=== PATIENT | male | born 1950 ===

== ENCOUNTER 2025-03-29 13:38 | Outpatient (NON) | payer MEDICARE, SELFPAY ==
--- OUTSIDE RECORDS SUMMARY | 2025-03-29 13:57 | XMS_ITS | Clinical Summary ---
Author Organization [facility] Address [address] [facility] [place] [address] Care Team Providers Care Online Editor Name Role Phone Marianne Forbes APRN-PASTRY COOK HELPER Primary Care Provider [phone] Source Comments [facility],non-owned Affiliates and Associated Physician Practices is amultiple site organization consisting of ambulatory clinics and hospital sitesin [place], [place], [place] and [place]. This disclosure is being madepursuant to the Care Everywhere program and may not contain all information available regarding this patient. Last updated 18.[facility] Allergies No known active allergies Medications * Be aware that medications may not be up to date on this document. Alwaysverify current medications with the patient. albuterol (PROVENTIL;TACHO KIMBERLY) (2.5 MG/3ML) 0.083% nebulizer solution Inhale 2.5 mg by mouth every 4 hours as needed Active albuterol HFA (VENTOLIN HFA) 108 (90 Base) MCG/ACT inhaler Inhale 2 puffs by mouth 4 times daily 9 Active aspirin (ASPIRIN) 81 MG tablet Take 81 mg by mouth once daily 9 Active budesonide-formo terol (SYMBICORT) 160-4.5 MCG/ACT inhaler Inhale 2 puffs by mouth 2 times daily 9 Active buPROPion SR 12hr (WELLBUTRIN-SR) 150 MG tablet TAKE 1 TABLET BY MOUTH TWICE DAILY FOR MOOD 9 Active diazePAM (VALIUM) 2 MG tablet Take 2 mg by mouth once daily as needed 9 Active vitamin D, ergocalciferol, (DRISDOL) 1.25 MG (30327 UT) capsule Take 50,000 Units by mouth every 7 days 9 Active FLUoxetine (PROZAC) 40 MG capsule TAKE 2 CAPSULES BY MOUTH DAILY...FOR MOOD 9 Active gabapentin (NEURONTIN) 600 MG tablet TAKE 1 TABLET BY MOUTH THREE TIMES DAILY FOR NEUROPATHY/NE RVE PAIN. 9 Active HYDROcodone-acet aminophen (NORCO) 7.5-325 MG tablet Take 1 tablet by mouth every 6 hours as needed 9 Active meloxicam (MOBIC) 15 MG tablet Take 15 mg by mouth once daily after lunch 9 Active nitroGLYCERIN (NITROSTAT) 0.4 MG tablet Dissolve 0.4 mg under the tongue every 24 hours as needed 9 Active tamsulosin (FLOMAX) 0.4 MG capsule Take 0.4 mg by mouth at bedtime 9 Active omeprazole (PRILOSEC) 40 MG capsule Take 40 mg by mouth at bedtime 0 Active isosorbide mononitrate CR 24hr (IMDUR) 30 MG tablet Take 30 mg by mouth once daily after lunch 0 Active INCRUSE ELLIPTA 62.5 MCG/INH inhaler Inhale 1 puff by mouth once daily 0 Active topiramate (TOPAMAX) 100 MG tablet Take 100 mg by mouth at bedtime 0 Active DULoxetine (CYMBALTA) 20 MG capsule Take 40 mg by mouth once daily 0 Active atorvastatin (LIPITOR) 40 MG tablet Take 40 mg by mouth at bedtime 0 Active furosemide (LASIX) 40 MG tablet Take 40 mg by mouth once daily 0 Active SLOW RELEASE IRON 45 MG TBCR Take 45 mg by mouth once daily 0 Active OXYGEN Use 4 L/min as directed Active CPAP Use as directed Active sulfamethoxazole -trimethoprim (Bactrim DS) 800-160 MG tablet Take 1 (one) tablet by mouth 2 times daily 14 tablet 4 Active Active Problems Problem Noted Date Diagnosed Date Abdominal pain, left lower quadrant 11/19/2020 Hypoxia 11/19/2020 Acute respiratory failure with hypoxia and hyper capnia 11/19/2020 Person under investigation for COVID-19 11/19/19 21 Acute respiratory failure due to COVID-19 2020 Chest pain 11/09/2019 Immunizations Immunization Administration Dates Next Due INFLUENZA VACCINE 07/13/2020, 9,08/25/2018,10/13/2017,12/27/19 17,12/25/2015,10/04/2014,09/01/2012 PNEUMOCOCCAL PPSV23 09/01/2012 Pneumococcal Pcv13 Conj 10/04/2014 TDAP (7yrs+) 04/01/2019 Social History Tobacco Use Types Packs/Day Years Used Date Smoking Tobacco: Every Day Cigarettes Smokeless Tobacco: Never Alcohol Use Standard Drinks/Week Comments No 0 (1 standard drink = 0.6 oz pur e alcohol) AUDIT-C Answer Date Recorded Q1: How often do you have a drink containing alcohol? Never 08/17/2024 Q2: How many drinks containi ng alcohol do you have on a typical day when you are drinking? Patient does not drink Q3: How often do you have si x or more drinks on one occasion? Never 08/17/2024 Sex and Gender Information Value Date Recorded Sex Assigned at Not on file Legal Sex Male 2:22 AM SENIOR RESEARCH EXECUTIVE Gender Identity Not on file Sexual Orientation Not on file Last Filed Vital Signs Vital Sign Reading Time Taken Comments Blood Pressure 177/92 08/17/2024 4:43 PM CDT Pulse 67 08/17/2024 4:41 PM CDT Temperature 36.2 C (97.2 F) 08/17/2024 1:44 PM CDT Respiratory Rate 23 08/17/2024 4:41 PM CDT Oxygen Saturation 92% 08/17/2024 4:41 PM CDT Inhaled Oxygen Concentration 45% 12/01/2020 3 :35 AM SENIOR RESEARCH EXECUTIVE Weight 106.6 kg (235 lb) 08/17/2024 1:44 PM CDT Height 167.6 cm (5' 6 ) 08/17/2024 1:44 PM CDT Body Mass Index 37.93 08/17/2024 1:44 PM CDT Plan of Treatment Health Maintenance Due Date Last Done Comments COLOGUARD (AGES 45-75) - COLON CA SCREENING 1952 COLON MONITORING 1952 COLONOSCOPY - COLON CA SCREENING 1952 CT COLONOGRAPHY - COLON CA SCREENING 1950 Colorectal Cancer Screening 1952 FIT - COLON CA SCREENING 1952 FLEX SIG - COLON CA SCREENING 1952 ZOSTER VACCINE (1 of 2) 2002 AAA SCREENING 2017 PNEUMOCOCCAL VACCINE 50+ (3 of 3 - PCV20 or PCV21) 10/04/2019 10/04/2014, 09/01/2012 COVID-19 VACCINE (4 - season) 2024 07/24/2021, 03/11/2021, 02/18/2021 DEPRESSION SCREENING 11/09/2024 MEDICARE AWV CALENDAR YEAR 2024 INFLUENZA VACCINE (Season Ended) 2025 10/09/2023, 08/08/2022, 07/24/2021, Additional history exists SCREENING FOR DIABETES 08/17/2027 , 12/29/2023, 05/14/2021, Additional history exists Respiratory Syncytial Virus (RSV) Vaccine Pt: or over 60 yrs (1 - 1-dose 75+ series) 2027 DTAP/TDAP/TD VACCINES (2 - Td or Tdap) 04/01/2029 04/01/2019 HEPATITIS C SCREENING Completed 11/21/2020, 020 HEPATITIS B VACCINE Aged Out No longe r eligible based on patient's age to complete this topic HIB VACCINE Aged Out No longer eligi ble based on patient's age to complete this topic HPV VACCINE Aged Out No longer eligi ble based on patient's age to complete this topic MENINGOCOCCAL (Group B) VACCINE SHARED DECISION-MAKING Aged Out No longer eligible based on patient's age to complete this topic MENINGOCOCCAL GROUPS A/C/Y/W VACCINE Aged Out No longer eligible based on patient's age to complete this topic Procedures Procedure Name Priority Date/Time Associated Diagnosis Comments COMPREHENSIVE METABOLIC PANEL STAT 08/17/2024 3:14 PM CDT HEPATITIS C AB SCREEN RFLX NAAT QUANT AM Draw 11/21/2020 3:51 AM SENIOR RESEARCH EXECUTIVE from Last 3 Months or Most Recently Relevant to Health Maintenance Results * (ABNORMAL) COMPREHENSIVE METABOLIC PANEL (08/17/2024 3:14 PM CDT) Glucose 206(H) 70 - 125 mg/dL 08/17/2024 3:39 PM CDT [facility] Sodium 143 136 - 145 mmol/L 08/17/2024 3:39 PM CDT [facility] Potassium 4.4 3.4 - 5.1 mmol/L 08/17/2024 3:39 PM CDT [facility] Chloride 110(H) 98 - 107 mmol/L 08/17/2024 3:39 PM CDT [facility] CO2 28 22 - 29 mmol/L 08/17/2024 3:39 PM CDT [facility] Calcium 9.02 8.4 - 10.2 mg/dL 08/17/2024 3:39 PM CDT [facility] Anion Gap 5(L) 6 - 16 mmol/L 08/17/2024 3:39 PM CDT [facility] BUN 20.5 8.4 - 25.7 mg/dL 08/17/2024 3:39 PM CDT [facility] Creatinine 0.83 0.72 - 1.25 mg/dL 08/17/2024 3:39 PM CDT [facility] Alkaline Phosphatase 145 40 - 150 U/L 08/17/2024 3:39 PM CDT [facility] ALT 22 <=55 U/L 08/17/2024 3:39 PM CDT [facility] AST 18 5 - 34 U/L 08/17/2024 3:39 PM CDT [facility] Protein Total 6.9 6.4 - 8.3 gm/dL 08/17/2024 3:39 PM CDT [facility] Albumin 3.4 3.4 - 4.8 gm/dL 08/17/2024 3:39 PM CDT [facility] Globulin Total 3.5 2.6 - 4.0 gm/dL 08/17/2024 3:39 PM CDT [facility] Albumin/Globulin Ratio 1.0 0.9 - 1.6 08/17/2024 3:39 PM CDT [facility] Bilirubin Total 0.3 0.2 - 1.2 mg/dL 08/17/2024 3:39 PM CDT [facility] eGFR >90 >90 mL/min/1.7 3m2 08/17/2024 3:39 PM CDT [facility] Comment:The GFR result was c alculated using the updated CKD-EPI Creatinine Equation (2020). Blood BLOOD SPECIMEN / Unknown Venipuncture / Unknown 08/17/2024 3:14 PM CDT 08/17/2024 3:19 PM CDT Xenia Bird BUMPER MACHINE OPERATOR-PASTRY COOK HELPER LAB - CHEMISTRY ORDER PIOTR Final Result [facility] [address] * HEPATITIS C AB SCREEN RFLX NAAT QUANT (11/21/2020 3:51 AM SENIOR RESEARCH EXECUTIVE) Interpretation Hepatitis C Antibody DIANE Negative Negative 11/22/2020 9:21 PM SENIOR RESEARCH EXECUTIVE [employer] ([facility]) Comment: Based on the anti-HCV (DIANE) screen, the HCV RNA by Quantitative NAAT test is not indicated and therefore not performed. INTERPRETIVE INFORMATION: Hepatitis C Virus Antibody by DIANE Index: 0.79 IV or less .................. Negative 0.80 to 0.99 IV .................. Equivocal 1.00 to 10.99 IV ................. Low Positive 11.00 IV or greater .............. High Positive Index Value (IV) = Anti-HCV signal to cutoff (S/C)ratio This assay should not be used for blood donor screening, associated re-entry protocols, or for screening Human Cells, Tissues and Cellular and Tissue-Based Products (HCT/P). Interpretation Hepatitis C Antibody Index 0.03 IV 11/22/2020 9:21 PM SENIOR RESEARCH EXECUTIVE [employer] ([facility]) Comment: Performed by [employer], [address] [place] [id number] [email or web address], Pilar Chambers MD, Lab. Director Blood BLOOD SPECIMEN / Unknown Lab Venipuncture / Unknown 11/21/2020 3:51 AM SENIOR RESEARCH EXECUTIVE 11/21/2020 4:00 AM SENIOR RESEARCH EXECUTIVE Deon Plata MD LAB - CHEMISTRY ORDERABLES Final Result [facility] ([facility]) [address] from Last 3 Months or Most Recently Relevant to Health Maintenance Insurance AET AETNA MEDICARE ADV AETNA AETNA MEDICARE ADV Advance Directives Documents on File Type Date Recorded Patient Roll On Worker Expl anation Code Status/Resuscitation 12/04/2020 9:55 AM * LIMITED RESUSCITATION-PRIOR AND AFTER ARREST (Latest Code Status on File) Date Activated Date Inactivated Comments 11/20/2020 3:58 PM 12/03/2020 3:58 PM Question Answer Comments If patient has no pulse and is not breathing: Do Not Attempt Resuscitation/DNR If patient is found with a p ulse and/or is breathing: Selective Treatment: Use medical treatment, IV fluids and IV medications, including antibiotics and vasopressors, as medically appropriate and consistent with patient preference. Do Not Intubate. May consider CPAP or BiPAP. * Full Code Date Activated Date Inactivated Comments 11/19/2020 7:24 PM 11/20/2020 3:58 PM * Full Code Date Activated Date Inactivated Comments 11/11/2019 2:02 PM 11/12/2019 8:11 AM * Full Code Date Activated Date Inactivated Comments 11/10/2019 2:16 AM 11/11/2019 2:02 PM Care Teams Online Editor Relationship Specialty Start Date End Date Marianne Forbes, BUMPER MACHINE OPERATOR-PASTRY COOK HELPER [address] [place] [address] PCP - General Nurse Practitioner Family 11/09/19
--- OUTSIDE RECORDS SUMMARY | 2025-03-29 13:57 | XMS_ITS | Referral Summary ---
Author Organization [facility] Address [address] [place] [address] Care Team Providers Care Sow Manager Name Role Phone Marianne Forbes NP Primary Care Provider [phone] Allergies No known active allergies Medications aspirin (Aspirin Childrens) 81 mg chewable tablet Take 1 tablet (81 mg total) by mouth daily 9 Active atorvastatin (LIPITOR) 80 mg tablet Take 1 tablet (80 mg total) by mouth nightly 4 Active OneTouch Ultra Test strip 4 Active budesonide-formo teroL (SYMBICORT) 160-4.5 mcg/actuation inhaler Inhale 2 puffs 2 (two) times a day 9 Active buPROPion SR (WELLBUTRIN SR) 150 mg 12 hr tablet TAKE 1 TABLET BY MOUTH TWICE DAILY FOR MOOD 9 Active celecoxib (CeleBREX) 200 mg capsule Take 1 capsule (200 mg total) by mouth daily 4 Active meloxicam (MOBIC) 15 mg tablet Take 1 tablet (15 mg total) by mouth 9 Active metFORMIN (GLUCOPHAGE) 500 mg tablet Take 1 tablet (500 mg total) by mouth daily 4 Active cloNIDine (CATAPRES) 0.1 mg tablet Take 1 tablet (0.1 mg total) by mouth 2 (two) times a day 4 Active dapagliflozin propanediol (FARXIGA) 5 mg tablet 4 Active furosemide (LASIX) 40 mg tablet Take 1 tablet (40 mg total) by mouth daily 0 Active gabapentin (NEURONTIN) 600 mg tablet TAKE 1 TABLET BY MOUTH THREE TIMES DAILY FOR NEUROPATHY/NERV E PAIN 9 Active HYDROcodone-acet aminophen (NORCO) 7.5-325 mg per tablet Take 1 tablet by mouth every 6 (six) hours as needed 9 Active isosorbide mononitrate ER (IMDUR) 30 mg 24 hr tablet Take 1 tablet (30 mg total) by mouth 0 Active isosorbide mononitrate ER (IMDUR) 120 mg 24 hr tablet TAKE 1 TABLET BY MOUTH ONCE DAILY. *THISIS A DOSE INCREASE ON 04/10/23 4 Active metoprolol XL (TOPROL-XL) 25 mg extended release tablet Take 1 tablet (25 mg total) by mouth daily 4 Active nitroglycerin (NITROSTAT) 0.[address] 1 tablet (0.4 mg total) under the tongue every 5 (five) minutes as needed 9 Active omeprazole (PriLOSEC) 40 mg capsule Take 1 capsule (40 mg total) by mouth daily 0 Active tamsulosin (FLOMAX) 0.4 mg extended release capsule Take 1 capsule (0.4 mg total) by mouth nightly 9 Active tiZANidine (ZANAFLEX) 4 mg tablet Take 1 tablet (4 mg total) by mouth 3 (three) times a day as needed 4 Active topiramate (TOPAMAX) 100 mg tablet Take 1 tablet (100 mg total) by mouth nightly 0 Active torsemide (DEMADEX) 20 mg tablet TAKE 2 TABLETS BY MOUTH DAILY ALTERNATING WITH 1 TABLET DAILY. 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 Social History Tobacco Use Types Packs/Day Years Used Date Smoking Tobacco: Never Assessed Sex and Gender Information Value Date Recorded Sex Assigned at Not on file Legal Sex Male 6:46 PM GIS TECHNICIAN Gender Identity Not on file Sexual Orientation Not on file Last Filed Vital Signs Vital Sign Reading Time Taken Comments Blood Pressure - - Pulse - - Temperature - - Respiratory Rate - - Oxygen Saturation - - Inhaled Oxygen Concentration - - Weight 106.6 kg (235 lb) 10/03/2024 10:05 AM GIS TECHNICIAN Height 167.6 cm (5' 6 ) 10/03/2024 10:05 AM GIS TECHNICIAN Body Mass Index 37.93 10/03/2024 10:05 AM GIS TECHNICIAN Plan of Treatment Not on file Insurance [employer] [facility] [employer] Care Teams Sow Manager Relationship Specialty Start Date End Date Marianne Forbes NP [address], [place] [phone] PCP - General Lithographic Retoucher Apprentice 09/02/24
--- OUTSIDE RECORDS SUMMARY | 2025-03-29 13:57 | XMS_ITS | Clinical Summary ---
Author Organization [facility] Address [address] [place] [address] Care Team Providers Care Pilot Plant Research Technician Name Role Phone Marianne Forbes NP Primary Care Provider [phone] Allergies No known active allergies Medications aspirin [...] on file Legal Sex Male 6:46 PM RESPIRATORY CARE FACULTY Gender Identity Not on file Sexual Orientation Not on file Last Filed Vital Signs Vital Sign Reading Time Taken Comments Blood Pressure - - Pulse - - Temperature - - Respiratory Rate - - Oxygen Saturation - - Inhaled Oxygen Concentration - - Weight 106.6 kg (235 lb) 10/03/2024 10:05 AM RESPIRATORY CARE FACULTY Height 167.6 cm (5' 6 ) 10/03/2024 10:05 AM RESPIRATORY CARE FACULTY Body Mass Index 37.93 10/03/2024 10:05 AM RESPIRATORY CARE FACULTY Plan of Treatment Health Maintenance Due Date Last Done Comments Colon Cancer Screening-Colonoscopy 1952 Depression Screening 1952 Fall Risk Assessment 1950 Hepatitis C Screening 1952 Hepatitis B Screening 1970 Zoster Vaccine (1 of 2) 2002 Well Visit 65+ 2017 Covid-19 Vaccine (4 - 2023-2 5 season) 2024 07/24/2021, 03/11/2021, 02/18/2021 Pneumococcal vaccine 65+ (3 of 3 - PCV20 or PCV21) 01/01/2026 01/01/2021, 10/04/2014, 09/01/2012 DTaP/Tdap/Td Vaccine (2 - Td or Tdap) 04/01/2029 04/01/2019 Abdominal Aortic Aneurysm (A AA) Screen Completed 12/29/2023, 05/14/2021, 11/19/2020, Additional history exists Influenza Vaccine Completed 08/29/2024, , 08/08/2019, Additional history exists [place] [address] [address] [facility] Care Teams Pilot Plant Research Technician Relationship Specialty Start Date End Date Marianne Forbes NP [address] [place] [address] PCP - General Government Teacher 09/02/24
[2025-03-29 15:36] LABS: Alanine Aminotransferase 21 U/L (6-50); Albumin Level 4.7 g/dL (3.5-5.1); Alkaline Phosphatase 155 U/L (38-126); Anion Gap 10 mmol/L (4-12); Aspartate Amino Transferase 28 U/L (17-59); Bilirubin,Total 0.5 mg/dL (0.2-1.3); Blood Urea Nitrogen 27 mg/dL (9-20); Carbon Dioxide 32 mmol/L (22-30); Chloride 101 mmol/L (98-107); Estimated Glomerular Filt Rate > 60; Glucose 141 mg/dL (65-110); Potassium 4.9 mmol/L (3.4-5.0); Sodium 143 mmol/L (137-145)
== END 2025-03-29 13:39 | disposition home or self-care (01) ==
PROVIDERS: PCP Internal Medicine; Visit Provider Nurse Practitioner Family
DX: M62.838 Other muscle spasm (principal)
CPT/HCPCS: 80053

== ENCOUNTER 2025-04-06 12:03 | Outpatient (NON) | payer MEDICARE, SELFPAY ==
--- OUTSIDE RECORDS SUMMARY | 2025-04-06 12:12 | XMS_ITS | Clinical Summary ---
Author Organization [facility] Address [address] [place] [address] Care Team Providers Care Whip Sawyer Name Role Phone Marianne Forbes NP Primary Care Provider [phone] Allergies No known active allergies Medications aspirin [...] on file Legal Sex Male 6:46 PM GROUND HAND Gender Identity Not on file Sexual Orientation Not on file Last Filed Vital Signs Vital Sign Reading Time Taken Comments Blood Pressure - - Pulse - - Temperature - - Respiratory Rate - - Oxygen Saturation - - Inhaled Oxygen Concentration - - Weight 106.6 kg (235 lb) 10/03/2024 10:05 AM GROUND HAND Height 167.6 cm (5' 6) 10/03/2024 10:05 AM GROUND HAND Body Mass Index 37.93 10/03/2024 10:05 AM GROUND HAND Plan of Treatment Health Maintenance Due Date [...] 08/29/2024, , 08/08/2019, Additional history exists [place] [address] [place] [address] [facility] Address: [facility] [id number] [place] [phone] [facility] Care Teams Whip Sawyer Relationship Specialty Start Date End Date Marianne Forbes NP [address] [place] [address] PCP - General Linen Room Worker 09/02/24
--- OUTSIDE RECORDS SUMMARY | 2025-04-06 12:12 | XMS_ITS | Referral Summary ---
Author Organization [facility] Address [address] [place] [address] Care Team Providers Care Painter Spray Name Role Phone Marianne Forbes NP Primary Care Provider [phone] Allergies No known active allergies Medications aspirin [...] on file Legal Sex Male 6:46 PM VAULT INSTALLER Gender Identity Not on file Sexual Orientation Not on file Last Filed Vital Signs Vital Sign Reading Time Taken Comments Blood Pressure - - Pulse - - Temperature - - Respiratory Rate - - Oxygen Saturation - - Inhaled Oxygen Concentration - - Weight 106.6 kg (235 lb) 10/03/2024 10:05 AM VAULT INSTALLER Height 167.6 cm (5' 6) 10/03/2024 10:05 AM VAULT INSTALLER Body Mass Index 37.93 10/03/2024 10:05 AM VAULT INSTALLER Plan of Treatment Not on file Insurance [employer] [facility] [employer] Care Teams Painter Spray Relationship Specialty Start Date End Date Marianne Forbes NP [address] [place], [place] [phone] PCP - General Warehouse Representative 09/02/24
--- OUTSIDE RECORDS SUMMARY | 2025-04-06 12:12 | XMS_ITS | Clinical Summary ---
Author Organization [facility] Address [address] [facility] [place] [address] Care Team Providers Care Yolk Spray Drier Name Role Phone Marianne Forbes APRN-[facility]ORNEY Primary Care Provider [phone] Source Comments [facility] [employer],non-owned Affiliates and Associated Physician Practices is amultiple site organization consisting of ambulatory clinics and hospital sitesin [place], [place], [place] and [place]. This disclosure is being madepursuant to the Care Everywhere program and may not contain all information available regarding this patient. Last updated 18.[facility] [employer] Allergies No known active allergies Medications * [...] Active vitamin D, ergocalciferol, (DRISDOL) 1.25 MG (59344 UT) capsule Take 50,000 Units by mouth [...] on file Legal Sex Male 2:22 AM RETAIL CLERK Gender Identity Not on file Sexual Orientation [...] Oxygen Concentration 45% 12/01/2020 3 :35 AM RETAIL CLERK Weight 106.6 kg (235 lb) 08/17/2024 1:44 PM CDT Height 167.6 cm (5' 6) 08/17/2024 1:44 PM CDT Body Mass Index [...] NAAT QUANT AM Draw 11/21/2020 3:51 AM RETAIL CLERK from Last 3 Months or Most Recently [...] - 1.2 mg/dL 08/17/2024 3:39 PM CDT [facility] eGFR >90 >90 mL/min/1.7 3m2 08/17/2024 3:39 PM CDT [facility] Comment:The GFR result was c alculated using the updated CKD-EPI Creatinine Equation (2020). Blood BLOOD SPECIMEN / Unknown Venipuncture / Unknown 08/17/2024 3:14 PM CDT 08/17/2024 3:19 PM CDT Xenia Bird GAME AGENT-[facility] [employer]NEY LAB - CHEMISTRY ORDER PIOTR Final Result [facility] [address] * HEPATITIS C AB SCREEN RFLX NAAT QUANT (11/21/2020 3:51 AM RETAIL CLERK) Interpretation Hepatitis C Antibody DIANE Negative Negative 11/22/2020 9:21 PM RETAIL CLERK [employer] ([facility]) Comment: Based on the anti-HCV [...] Antibody Index 0.03 IV 11/22/2020 9:21 PM RETAIL CLERK [employer] ([facility]) Comment: Performed by [facility], [address] [place] [id number] [email or web address], Pilar Chambers MD, Lab. Director Blood BLOOD SPECIMEN / Unknown Lab Venipuncture / Unknown 11/21/2020 3:51 AM RETAIL CLERK 11/21/2020 4:00 AM RETAIL CLERK Deon Plata MD LAB - CHEMISTRY ORDERABLES Final Result [facility] ([facility]) [address] from Last 3 Months or Most Recently Relevant to Health Maintenance Insurance AET AETNA MEDICARE ADV AETNA AETNA MEDICARE ADV Advance Directives Documents on File Type Date Recorded Patient Software Engineer Web Applications Expl anation Code Status/Resuscitation 12/04/2020 9:55 AM [...] 2:16 AM 11/11/2019 2:02 PM Care Teams Yolk Spray Drier Relationship Specialty Start Date End Date Marianne Forbes, GAME AGENT-[facility] [address] [place] [address] PCP - General Nurse Practitioner Family 11/09/19
[2025-04-06 12:32] LABS: Add Urine Microscopic? YES; Appearance Urine Turbid (Clear); Bilirubin Urine Negative (Negative); Blood Urine 3+ (Negative); Glucose Urine UA 3+ mg/dL (Negative); Ketones Urine 1+ mg/dL (Negative); Leukocyte Esterase Ur 3+ LEU/UL (Negative); Need Manual Microscopic Reviewed; Nitrate Urine Positive (Negative); Protein Urine 3+ mg/dL (Negative); RBC Urine >100 /hpf (0-2); Specific Grav Ur 1.029 (1.001-1.035); Squamous Epithelial Cell Urine None Seen /hpf (Few); WBC Clumps Urine Present /HPF; WBC Urine >100 /hpf (0-3); pH Urine 7.5 (5.0-9.0)
[2025-04-06 12:33] LABS: Bacteria Urine 1+ /hpf; Color Urine Dark Yellow (Yellow)
== END 2025-04-06 12:04 | disposition home or self-care (01) ==
LOC: HOME HLTH 12:10
PROVIDERS: PCP Internal Medicine; Visit Provider Nurse Practitioner Family
DX: Z46.6 Encounter for fitting and adjustment of urinary device (principal); Z99.81 Dependence on supplemental oxygen
CPT/HCPCS: 81001; 87077; 87086; 87186